=== PATIENT | male | born 1965 | race Caucasian/White ===

== ENCOUNTER → 2017-04-03 | Day surgery (SDC) | payer OTHER ==
[~2017-04-03] VITALS: Ht 177.8 cm; Wt 118.5 kg
[~2017-04-03] MED LIST: CIALIS5 MG PO; CIPRO500 MG PO; CPAP INH; MULTIVITAMINS1 EAC2 PO; TRIAMTERENE-HC1 EAC1 PO
== END | disposition disaster alternative care site (69) ==
LOC: GPOC 03-29 13:00 → GEND 08:56 → GPOC 13:00
PROC: 0DBK8ZZ Excision of Ascending Colon, Via Natural or Artificial Opening Endoscopic (ICD-10-PCS; principal; 2017-04-03)
PROC: 0DBM8ZZ Excision of Descending Colon, Via Natural or Artificial Opening Endoscopic (ICD-10-PCS; 2017-04-03)
PROC: 06LY4CC Occlusion of Hemorrhoidal Plexus with Extraluminal Device, Percutaneous Endoscopic Approach (ICD-10-PCS; 2017-04-03)
DX: Z12.11 Encounter for screening for malignant neoplasm of colon (principal); D12.0 Benign neoplasm of cecum; D12.2 Benign neoplasm of ascending colon; D12.3 Benign neoplasm of transverse colon; K64.1 Second degree hemorrhoids; K62.5 Hemorrhage of anus and rectum; F17.210 Nicotine dependence, cigarettes, uncomplicated; Z98.52 Vasectomy status; Z98.890 Other specified postprocedural states
CPT/HCPCS: J2001; J7030